=== PATIENT | female | born 1970 | race Caucasian/White ===

== ENCOUNTER 2017-12-26 18:28 | Inpatient (IN) ==
[2017-12-26] MEDS ORDERED: 0.9 % Sodium Chloride 1,000 ML IVC ONE ×2 (19:35→22:05)
[2017-12-26 19:47] LABS: Hematocrit 32.4 % (35.3-44.9); Hemoglobin 10.6 g/dL (11.5-15.4); Immature Granulocytes % 0.4 % (0-4); Lymphocytes % 11.1 %; Mean Corpuscular HGB Conc 32.7 g/dL (31.6-35.5); Mean Corpuscular Hemoglobin 29.4 pg (28.0-33.3); Mean Corpuscular Volume 89.8 fL (83.0-100.0); Mean Platelet Volume 9.9 fL (9.4-12.4); Platelet Count 267 K/mcL (140-400); Red Blood Count 3.61 M/mcL (3.82-4.97); Red Cell Distribution Width 13.9 % (11.5-14.5); Segmented Neutrophils % 82.4 %
[2017-12-26 19:48] LABS: Basophils % 0.2 %; Eosinophils % 0.1 %; Lymphocytes # 1.3 K/mcL (0.6-4.6); Monocytes # 0.7 K/mcL (0.0-1.3); Monocytes % 5.8 %; Neutrophils # 9.7 K/mcL (1.6-8.9)
[2017-12-26 20:03] LABS: BUN/Creatinine Ratio 7 (6-26); Blood Urea Nitrogen 4 mg/dL (6-20); Calcium 8.8 mg/dL (8.6-10.3); Carbon Dioxide 21 mEq/L (23-29); Chloride 108 mEq/L (98-107); Glucose 113 mg/dL (70-105); Osmolality,Calculated 284 (280-300); Potassium 3.3 mEq/L (3.5-5.1); Sodium 138 mEq/L (136-145); Troponin I < 0.03 ng/mL (< 0.04); eGFR For African Americans > 60 (> 60); eGFR For Non-African Americans > 60 (> 60)
[2017-12-26] MEDS ORDERED: Levofloxacin 750 MG/150 ML 750 MG/150 ML BAG IVPB ONE (20:12)
--- NOTE | 2017-12-26 20:15 | Emergency Department Note ---
Disposition Clinical Impression: Hypoxia Community acquired pneumonia Qualifiers: Laterality: unspecified laterality Qualified Code(s): J18.9 - Pneumonia, unspecified organism Disposition: Admitted As Inpatient Condition: Fair Time of Disposition: 22:34 General Adult HPI - General Chief complaint: ED Shortness of Breath/Dyspnea Stated complaint: MONIKA Time Seen by Provider: 12/26/17 19:14 Source: patient Mode of arrival: ambulatory Limitations: no limitations Nursing Notes Reviewed: Yes Vital Signs Reviewed: Yes - History of Present Illness HPI Narrative: 47-year-old female with no significant past medical history presenting to the emergency Department chief complaint of shortness of breath and pleuritic chest pain. Patient states 2 days ago she started having increased work of breathing and shortness of breath. Every time she takes a deep breath she has chest pain. The chest pain is substernal and does not radiate. She has not tried anything at home for this. She states the last time she felt this way she was diagnosed with pneumonia and innovated. Patient denies any cardiac history. Denies any asthma or COPD. Denies chest pain at this time. Denies fevers at home. Patient states she came to the emergency department because she is having trouble ambulating and is becoming dyspneic on exertion. Patient denies any history of PE or DVT. She does take the Depo shot. She denies any recent long trips or travels. Pain Scale: 0 - Related Data Home Medications Medication Instructions Recorded Confirmed Gabapentin [Neurontin] 1,200 mg PO TID 03/22/16 12/26/17 Ergocalciferol (VITAMIN D2) 50,000 unit PO MO 12/07/16 12/26/17 [Vitamin D2] Folic Acid 0.4 mg PO DAILY 12/07/16 12/26/17 Multivitamin [One Daily Essential] 1 tab PO DAILY 12/07/16 12/26/17 FLUoxetine HCl [Prozac] 80 mg PO DAILY 12/26/17 12/26/17 [place] Carbonate 300 mg PO TID 12/26/17 12/26/17 OLANZapine [Zyprexa] 20 mg PO HS 12/26/17 12/26/17 Omeprazole [PriLOSEC] 40 mg PO DAILY 12/26/17 12/26/17 hydrOXYzine HCl [Hydroxyzine HCl] 25 mg PO TID PRN 12/26/17 12/26/17 lamoTRIgine [Lamictal] 150 mg PO DAILY 12/26/17 12/26/17 Allergies Allergy/AdvReac Type Severity Reaction Status Date / Time naproxen [From Naprosyn] Allergy Rash Verified 12/26/17 18:58 tramadol Allergy Rash Verified 12/26/17 18:58 All systems ED: reviewed and negative except as stated. Cardiovascular: Reports: chest pain, dyspnea on exertion Respiratory: Reports: cough, dyspnea Past Medical History - Past Medical History Attestation: Yes The following information was validated with the patient. Medical history: Reports: arthritis, hepatitis Surgical history: Reports: appendectomy Psychiatric history: Reports: anxiety, bipolar, depression FIRE CONTROL ASSISTANT history: Reports: no FIRE CONTROL ASSISTANT history - Social History Smoking Status: Current every day smoker Smokeless Tobacco Status: No Alcohol use: Reports: none Drug use: Reports: none, other Physical Exam - General Limitations: no limitations General appearance: alert, in no apparent distress - Head Head exam: atraumatic, normocephalic, normal inspection - Eye Eye exam: Present: normal appearance. Absent: scleral icterus, conjunctival injection - ENT ENT exam: mucous membranes dry - Neck Neck exam: Present: normal inspection, full ROM. Absent: tenderness, meningismus - Chest Chest inspection: Present: normal inspection, symmetric chest wall rise. Absent : tenderness, rash - Respiratory Respiratory exam: Present: other (Rhonchi noted bilaterally.). Absent: respiratory distress - Cardiovascular Cardiovascular exam: Present: normal rhythm, tachycardia, normal heart sounds - Abdominal Exam Abdominal exam: Present: soft, Non-Tender. Absent: distention, guarding, rebound - Extremities Exam Extremities exam: Present: normal inspection, full ROM. Absent: pedal edema, calf tenderness - Neurological Exam Neurological exam: Present: alert, oriented X3 - Psychiatric Psychiatric exam: Present: normal affect, normal mood - Skin Skin exam: Present: warm, dry Course Course Narrative: 47-year-old female presenting to the emergency department for shortness of breath and pleuritic chest pain. Upon arrival she is hypoxic in the room a 80% . Nasal cannula oxygen applied. Patient also tachycardic around 120 in the room. Concern for pneumonia versus PE at this time. We will perform basic laboratory analysis including CBC, BMP along with d-dimer. We will also perform a chest x-ray. Patient is alert and oriented 3 in the room. After application of nasal cannula oxygen saturation in the mid 90s. We will also provide the patient with 1 L normal saline. Physical exam does show rhonchi and dry mucous membranes but otherwise within normal limits. No calf tenderness or unilateral leg swelling at this time. Disposition pending results. Patient agrees with this plan. - Reevaluation(s) Reevaluation #1: Patient's d-dimer elevated at 704. We will perform a CTA for further evaluation and rule out of PE. Portable chest x-ray shows possible multifocal pneumonia. We will provide the patient with Levaquin at this time. Patient is alert and oriented 3 in the room with stable vital signs at this time. She agrees to this plan. Disposition pending results. Reevaluation #2: CTA completed. No large embolus noted. Multifocal pneumonia noted. At this time we will admit the patient for community-acquired pneumonia along with hypoxia. I spoke with the on-call hospitalist Dr. Carter who agrees to accept the patient. He would like us to also added vancomycin to her antibiotic regimen. She is alert and oriented 3 in the room with stable vital signs at this time. She agrees with this plan. Vital Signs Temperature 98.8 F 12/26/17 18:54 Pulse Rate 132 12/26/17 18:54 Respiratory Rate 26 12/26/17 18:54 Blood Pressure 142/82 12/26/17 18:54 O2 Sat by Pulse Oximetry 94 12/26/17 18:54 Temperature 98.7 F 12/27/17 00:33 Pulse Rate 80 12/27/17 00:33 Respiratory Rate 18 12/27/17 00:33 Blood Pressure 87/51 12/27/17 00:33 O2 Sat by Pulse Oximetry 95 12/27/17 00:33 Oxygen Delivery Oxygen Delivery Nasal Cannula Medical Decision Making - Lab Data Result diagrams: 12/26/17 19:22 12/26/17 19:22 Lab Results 12/26/17 12/26/17 12/26/17 Range/Units 19:22 19:22 19:22 WBC 11.8 H (4.3-11.1) K/mcL RBC 3.61 L (3.82-4.97) M/mcL Hgb 10.6 L (11.5-15.4) g/dL Hct 32.4 L (35.3-44.9) % MCV 89.8 (83.0-100.0) fL MCH 29.4 (28.0-33.3) pg MCHC 32.7 (31.6-35.5) g/dL RDW 13.9 (11.5-14.5) % Plt Count 267 (140-400) K/mcL MPV 9.9 (9.4-12.4) fL Immature Gran % 0.4 (0-4) % Seg Neutrophils % 82.4 % Lymphocytes % 11.1 % Monocytes % 5.8 % Eosinophils % 0.1 % Basophils % 0.2 % Neutrophils # 9.7 H (1.6-8.9) K/mcL Lymphocytes # 1.3 (0.6-4.6) K/mcL Monocytes # 0.7 (0.0-1.3) K/mcL Eosinophils # 0.0 (0.0-0.6) K/mcL Basophils # 0.0 (0.0-0.2) K/mcL D-Dimer (0-500) ng/mLFEU Sodium 138 (136-145) mEq/L Potassium 3.3 L (3.5-5.1) mEq/L Chloride 108 H (98-107) mEq/L Carbon Dioxide 21 L (23-29) mEq/L BUN 4 L (6-20) mg/dL Creatinine 0.60 (0.60-1.20) mg/dL Est GFR ( Amer) > 60 (> 60) Est GFR (Non-Af Amer) > 60 (> 60) BUN/Creatinine Ratio 7 (6-26) Glucose 113 H (70-105) mg/dL Calculated Osmolality 284 (280-300) Lactic Acid 2.4 H (0.5-2.2) mmol/L Calcium 8.8 (8.6-10.3) mg/dL Troponin I < 0.03 (< 0.04) ng/mL B-Natriuretic Peptide (Less than 100) pg/mL 12/26/17 12/26/17 12/26/17 Range/Units 19:22 19:48 22:26 WBC (4.3-11.1) K/mcL RBC (3.82-4.97) M/mcL Hgb (11.5-15.4) g/dL Hct (35.3-44.9) % MCV (83.0-100.0) fL MCH (28.0-33.3) pg MCHC (31.6-35.5) g/dL RDW (11.5-14.5) % Plt Count (140-400) K/mcL MPV (9.4-12.4) fL Immature Gran % (0-4) % Seg Neutrophils % % Lymphocytes % % Monocytes % % Eosinophils % % Basophils % % Neutrophils # (1.6-8.9) K/mcL Lymphocytes # (0.6-4.6) K/mcL Monocytes # (0.0-1.3) K/mcL Eosinophils # (0.0-0.6) K/mcL Basophils # (0.0-0.2) K/mcL D-Dimer 704 H (0-500) ng/mLFEU Sodium (136-145) mEq/L Potassium (3.5-5.1) mEq/L Chloride (98-107) mEq/L Carbon Dioxide (23-29) mEq/L BUN (6-20) mg/dL Creatinine (0.60-1.20) mg/dL Est GFR ( Amer) (> 60) Est GFR (Non-Af Amer) (> 60) BUN/Creatinine Ratio (6-26) Glucose (70-105) mg/dL Calculated Osmolality (280-300) Lactic Acid 0.9 (0.5-2.2) mmol/L Calcium (8.6-10.3) mg/dL Troponin I (< 0.04) ng/mL B-Natriuretic Peptide 317 H (Less than 100) pg/mL - EKG Data EKG #1 EKG attestation: Yes I reviewed and interpreted this EKG. EKG results narrative: Sinus tachycardia. Left anterior fascicular block. Nonspecific T wave abnormality. 102 bpm. [place] interval 136, QRS 90, QTC 397. No signs of acute ST segment elevation or ischemia noted. Compared to previous EKG completed on new nonspecific T-wave abnormalities noted. Attestation Statement - Attestation Attestation: I, Anand Woods, examined this patient and my medical decision-making was reviewed with the METAL TRADES INSTRUCTOR/PA/Advanced Practice Nurse/Resident Physician. I agree with the documented findings, disposition and treatment plan as described except to the extent set forth below. 47-year-old female presents emergency Department with concerns of increasing shortness of breath over the past few days. Patient states her symptoms are similar to her previous pneumonia for which she needed admission in the past. Patient reports elevated temperature at home. Patient meets SIRS criteria on initial evaluation in the emergency department. Chest x-ray shows possible multifocal pneumonia. Patient has elevated d-dimer however CTA does not show evidence of mainstem PE. Patient has not been admitted to the hospital within the past few months. Patient will be started on antibiotics and admitted to the hospitalist for further Evaluation of likely multifocal pneumonia.
[2017-12-26] MEDS ORDERED: Ibuprofen 800 MG TABLET PO ONE (21:44)
[2017-12-26] MEDS ORDERED: Naloxone 0.4 MG/ML INJ IVP PRN (23:42)
[2017-12-26] MEDS ORDERED: hydrOXYzine pamoate 25 MG CAPSULE PO PRN (23:44)
[2017-12-26] MEDS ORDERED: Ringers Solution, Lactated 1,000 ML IVC SCH (23:45)
--- NOTE | 2017-12-26 23:46 | Internal Med History&Physical ---
Date of Encounter: 12/26/17 Time of Encounter: 23:30 Assessment and Plan (1) Pneumonia Current visit: Yes Status: Suspected Patient with multifocal pneumonia bilaterally. Will treat with broad-spectrum antibiotics for now. High risk for complications. Follow culture results. O2 supplementation as needed. Check urine Legionella and streptococcal antigen. Qualifiers: Pneumonia type: due to methicillin-resistant Staphylococcus aureus (MRSA) Laterality: bilateral Lung location: lower lobe of lung Qualified Code(s): J15.212 - Pneumonia due to Methicillin resistant Staphylococcus aureus (2) Depression Current visit: Yes Status: Chronic Continue home medications. Qualifiers: Depression Type: other depression Qualified Code(s): F32.89 - Other specified depressive episodes (3) Bipolar disorder Current visit: Yes Status: Chronic Continue lithium and Lamictal Qualifiers: Active/Remission status: in remission of unspecified degree Qualified Code( s): F31.70 - Bipolar disorder, currently in remission, most recent episode unspecified (4) Tobacco abuse Current visit: Yes Status: Chronic Consult. Offered nicotine patch. Patient was placed on 14 mg per hour patch (5) DVT prophylaxis Current visit: Yes Status: Acute With subcutaneous heparin Internal Medicine - H&P: HPI Chief complaint: Shortness of breath and cough Admitted From: Emergency Dept Plans for Post Hospital Care: Home History of present illness: Ms. Stafford is a 47 year old female patient with a history of bipolar disease, depression who presented to the ER with complaints of shortness of breath and cough. Symptoms have been going on for the past 2-3 days. No sputum production. No fever or chills reported at home. No nausea or vomiting. No chest pain. Reports that she had symptoms of flu one week back that improved. Also had a bout of pneumonia one year back. No recent hospitalizations. No recent antibiotic use. Past Med Surg Social Fam HX - Past Medical History Attestation: Yes The following information was validated with the patient. Source: patient Medical history: arthritis, hepatitis Psychiatric history: anxiety, bipolar, depression - Past Surgical History Surgical History: appendectomy - Social History Smoking Status: Current every day smoker Smokeless Tobacco Status: No Alcohol use: none Drug use: none, other - Family History Mother Living Status: Still Living Hx Family Cardiac Disorders: Yes (hypertension) Hx Family Endocrine Disorder: Yes (diabetes) Father Living Status: Still Living Hx Family Cardiac Disorders: Yes (hypertension) Hx Family Endocrine Disorder: Yes (diabetes) Internal Medicine - H&P: Meds Gabapentin [Neurontin] 1,200 mg PO TID 03/22/16 [History] Ergocalciferol (VITAMIN D2) [Vitamin D2] 50,000 unit PO MO 12/07/16 [History] Folic Acid 0.4 mg PO DAILY 12/07/16 [History] Multivitamin [One Daily Essential] 1 tab PO DAILY 12/07/16 [History] FLUoxetine HCl [Prozac] 80 mg PO DAILY 12/26/17 [History] [place] Carbonate 300 mg PO TID 12/26/17 [History] OLANZapine [Zyprexa] 20 mg PO HS 12/26/17 [History] Omeprazole [PriLOSEC] 40 mg PO DAILY 12/26/17 [History] hydrOXYzine HCl [Hydroxyzine HCl] 25 mg PO TID PRN 12/26/17 [History] lamoTRIgine [Lamictal] 150 mg PO DAILY 12/26/17 [History] 3 Allergy/AdvReac Type Severity Reaction Status Date / Time naproxen [From Naprosyn] Allergy Rash Verified 12/26/17 18:58 tramadol Allergy Rash Verified 12/26/17 18:58 All Systems PM: A 10-system review of systems was performed and is negative for pertinent findings except as documented above in the HPI. - Constitutional Constitutional: fatigue, malaise, no chills, no fever(s), no night sweats - EENT Eyes: no change in vision, no discharge, no pain, no photophobia Ears: no ear discharge, no ear pain, no tinnitus Nose, mouth and throat: no dysphagia, no nasal discharge, no neck pain, no sore throat - Cardiovascular Cardiovascular ROS IM: no chest pain, no diaphoresis, no dyspnea, no lightheadedness, no palpitations, no syncope - Respiratory Respiratory: cough, dyspnea - Gastrointestinal Gastrointestinal: no abdominal pain, no diarrhea, no hematemesis, no hematochezia, no melena, no nausea, no vomiting - Genitourinary Genitourinary: no change in urinary stream, no dysuria, no flank pain, no hematuria - Musculoskeletal Musculoskeletal ROS IM: no numbness, no tingling - Integumentary Integumentary IM: no rash, no unusual bruising - Neurological Neurological ROS: no confusion, no convulsions, no focal weakness, no numbness, no tingling, no tremor(s) - Hematologic/Lymphatic Hematologic/Lymphatic: no easy bruising - Constitutional Vitals: Temp Pulse Resp BP Pulse Ox 98.8 F 88 20 106/66 94 12/26/17 18:54 12/26/17 22:48 12/26/17 22:48 12/26/17 22:48 12/26/17 22:48 General appearance: Present: cooperative, A&O X 3, answers questions appropriately - Head Head exam: Present: atraumatic, normocephalic - Eye Eye exam: Present: EOMI, PERRL, conjuntiva pink, sclera anicteric - Neck Neck exam general surgery: Present: supple, trachea midline. Absent: lymphadenopathy - Respiratory Respiratory exam: Present: prolonged expiratory phase. Absent: accessory muscle use, rales, rhonchi, wheezes Additional comments: Coarse breath sounds bilaterally - Cardiovascular Cardiovascular exam: Present: RRR, +S1, +S2. Absent: diastolic murmur, gallop, rubs, systolic murmur - GI/Abdominal GI/Abdominal exam: Present: normal bowel sounds, soft, no peritoneal signs. Absent: distended, tenderness - Extremities Exam Extremities exam: Present: warm, radial pulses palpable and symmetrical. Absent : calf tenderness, cyanotic, pedal edema - Neurological Exam Neurological exam: Present: alert, CN II-XII intact, oriented X3, no focal deficits. Absent: facial droop, speech deficit - Skin Skin exam: Present: dry, intact Internal Med - H&P Results - Labs CBC & Chem 7: 12/26/17 19:22 12/26/17 19:22 - Impressions Impressions Chest X-Ray 12/26/17 19:22 IMPRESSION: Patchy bilateral opacity, with pulmonary vascular congestion. Pulmonary edema is the primary consideration, although multifocal pneumonia remains in the differential. D/ / Lalo Isbell MD / Lalo Isbell MD Interpreting Provider: Lalo Isbell MD Chest CTA 12/26/17 20:07 IMPRESSION: 1. Limited evaluation of the pulmonary arteries. No central pulmonary embolism is detected. 2. Extensive patchy alveolar ground-glass opacity and consolidation seen throughout both lungs, suggesting multifocal pneumonia. A component of pulmonary edema would be considered as well. D/ / Lalo Isbell MD / Lalo Isbell MD Interpreting Provider: Lalo Isbell MD
[2017-12-27] MEDS: Piperacillin/Tazobactam 3.375 GM in 0.9 % Sodium Chloride Mini Bag 100 ML IVPB SCH ×3 (01:28→15:03)
[2017-12-27] MEDS: OLANZapine 10 MG TAB.RAPDIS PO SCH ×2 (01:28→20:08)
[2017-12-27] MEDS: *HR* Heparin 5,000 UNIT/ML VIAL SQ SCH ×2 (05:33→17:50)
[2017-12-27 05:48] LABS: Basophils % 0.2 %; Eosinophils % 0.2 %; Hematocrit 30.9 % (35.3-44.9); Hemoglobin 10.1 g/dL (11.5-15.4); Immature Granulocytes % 0.4 % (0-4); Lymphocytes % 20.9 %; Mean Corpuscular HGB Conc 32.7 g/dL (31.6-35.5); Mean Corpuscular Hemoglobin 29.4 pg (28.0-33.3); Mean Corpuscular Volume 89.8 fL (83.0-100.0); Monocytes # 0.6 K/mcL (0.0-1.3); Monocytes % 6.4 %; Nucleated Red Blood Cells 0.2 /100 WBC (0); Platelet Count 242 K/mcL (140-400); Red Blood Count 3.44 M/mcL (3.82-4.97); Red Cell Distribution Width 14.2 % (11.5-14.5); Segmented Neutrophils % 71.9 %
[2017-12-27 06:02] LABS: BUN/Creatinine Ratio 6 (6-26); Blood Urea Nitrogen 3 mg/dL (6-20); Carbon Dioxide 21 mEq/L (23-29); Chloride 113 mEq/L (98-107); Glucose 97 mg/dL (70-105); Osmolality,Calculated 284 (280-300); Potassium 4.2 mEq/L (3.5-5.1); Sodium 139 mEq/L (136-145); eGFR For African Americans > 60 (> 60); eGFR For Non-African Americans > 60 (> 60)
[2017-12-27] MEDS ORDERED: 0.9 % Sodium Chloride 1,000 ML IVC ONE ×2 (06:50→12:54)
[2017-12-27] MEDS ORDERED: 0.9 % Sodium Chloride 1,000 ML ONE ×2 (06:53→12:57)
[2017-12-27] MEDS: Nicotine 14 MG PATCH.TD24 TD SCH (07:52)
[2017-12-27] MEDS: Lithium Carbonate 300 MG CAPSULE PO SCH ×3 (07:53→20:08)
[2017-12-27] MEDS: lamoTRIgine 100 MG TABLET PO SCH (07:53)
[2017-12-27] MEDS: FLUoxetine 20 MG CAPSULE PO SCH (07:53)
[2017-12-27] MEDS: Gabapentin 400 MG CAPSULE PO SCH ×3 (07:53→20:08)
[2017-12-27] MEDS: Multivit/Ca/Min/Fe/FA 1 TAB TABLET PO SCH (07:53)
[2017-12-27] MEDS: Folic Acid 1 MG TABLET PO SCH (07:53)
--- NOTE | 2017-12-27 10:02 | Internal Med Progress Note ---
<Dangelo Canales - Last Filed: 12/27/17 12:59> Date of Encounter: 12/27/17 Time of Encounter: 09:59 - Assessment and plan (1) Pneumonia Current Visit: No Status: Suspected Assessment and plan: CT scan showed possible multifocal pneumonia bilaterally Continue with vancomycin, Zosyn and Levaquin Continue oxygen supplementation as needed Blood cultures have been drawn Legionella and strep pneumonia antigen have been ordered Qualifiers: Pneumonia type: due to unspecified organism Laterality: bilateral Lung location: lower lobe of lung Qualified Code(s): J18.9 - Pneumonia, unspecified organism (2) Bipolar disorder Current Visit: No Status: Chronic Assessment and plan: Continue home medications Qualifiers: Active/Remission status: remission status unspecified Qualified Code(s): F31.9 - Bipolar disorder, unspecified (3) Depression Current Visit: No Status: Chronic Assessment and plan: Continue home medications Qualifiers: Depression Type: unspecified Qualified Code(s): F32.9 - Major depressive disorder, single episode, unspecified (4) Tobacco abuse Current Visit: No Status: Chronic Assessment and plan: Nicotine patch as an order for this patient Recommend cessation (5) DVT prophylaxis Current Visit: No Status: Acute Assessment and plan: heparin 5000 units SQ q12hrs - Subjective Interval history: Patient states that she feels like she is doing better. Patient denies any fever. Patient states that she does have some mild chest pain when she breathes or when she coughs. Patient denies any production to her cough. Patient denies any home oxygen use. - Constitutional Vitals: Temp Pulse Resp BP Pulse Ox 98.0 F 68 18 93/52 97 12/27/17 06:37 12/27/17 06:37 12/27/17 06:37 12/27/17 09:34 12/27/17 06:37 General appearance: Present: cooperative, A&O X 3, answers questions appropriately - Head Head exam: Present: atraumatic, normocephalic - Neck Neck exam general surgery: Present: full ROM, normal inspection, trachea midline - Respiratory Respiratory exam: Present: CTAB. Absent: accessory muscle use, rales, rhonchi, wheezes - Cardiovascular Cardiovascular exam: Present: RRR, +S1, +S2. Absent: diastolic murmur, gallop, rubs, systolic murmur - GI/Abdominal GI/Abdominal exam: Present: normal bowel sounds, soft, no peritoneal signs. Absent: distended, tenderness - Extremities Exam Extremities exam: Present: warm. Absent: pedal edema, tenderness - Neurological Exam Neurological exam: Present: alert, oriented X3, no focal deficits. Absent: facial droop, speech deficit - Psychiatric Psychiatric exam: Present: normal affect, normal mood - Skin Skin exam: Present: dry, intact, warm Internal Medicine: Result - Labs CBC & Chem 7: 12/27/17 05:00 12/27/17 05:00 Labs: Short CBC 12/27/17 Range/Units 05:00 WBC 9.8 (4.3-11.1) K/mcL Hgb 10.1 L (11.5-15.4) g/dL Hct 30.9 L (35.3-44.9) % Plt Count 242 (140-400) K/mcL Neutrophils # 7.0 (1.6-8.9) K/mcL BMP 12/27/17 05:00 Sodium 139 Potassium 4.2 D Chloride 113 H Carbon Dioxide 21 L BUN 3 L Creatinine 0.51 L Glucose 97 Calcium 8.0 L - ABG Interpretation ABG results: PT/INR, D-dimer D-Dimer 704 ng/mLFEU (0-500) H 12/26/17 19:48 Consult Discharge Plan - Plan Referrals: Dolly Adams, [employer]DER [Primary Care Provider] - <Tray Pandya - Last Filed: 12/27/17 18:49> Date of Encounter: 12/27/17 - Assessment and plan (1) Acute hypoxemic respiratory failure Current Visit: No Status: Acute (2) Pneumonia Current Visit: Yes Status: Suspected Qualifiers: Pneumonia type: due to other aerobic Gram-negative bacteria Laterality: bilateral Lung location: lower lobe of lung Qualified Code(s): J15.6 - Pneumonia due to other Gram-negative bacteria (3) Hypokalemia Current Visit: No Status: Acute (4) Hepatitis C Current Visit: No Status: Chronic Qualifiers: Viral hepatitis chronicity: chronic Hepatic coma status: without hepatic coma Qualified Code(s): B18.2 - Chronic viral hepatitis C (5) Bipolar disorder Current Visit: Yes Status: Chronic Qualifiers: Active/Remission status: in remission of unspecified degree Qualified Code( s): F31.70 - Bipolar disorder, currently in remission, most recent episode unspecified (6) Tobacco abuse Current Visit: Yes Status: Chronic - Constitutional Vitals: Temp Pulse Resp BP Pulse Ox 98.7 F 79 18 92/59 93 12/27/17 15:18 12/27/17 15:18 12/27/17 15:18 12/27/17 15:18 12/27/17 15:18 Internal Medicine: Result - Labs CBC & Chem 7: 12/27/17 05:00 12/27/17 05:00 Labs: Short CBC 12/27/17 Range/Units 05:00 WBC 9.8 (4.3-11.1) K/mcL Hgb 10.1 L (11.5-15.4) g/dL Hct 30.9 L (35.3-44.9) % Plt Count 242 (140-400) K/mcL Neutrophils # 7.0 (1.6-8.9) K/mcL BMP 12/27/17 05:00 Sodium 139 Potassium 4.2 D Chloride 113 H Carbon Dioxide 21 L BUN 3 L Creatinine 0.51 L Glucose 97 Calcium 8.0 L - ABG Interpretation ABG results: PT/INR, D-dimer D-Dimer 704 ng/mLFEU (0-500) H 12/26/17 19:48 - Attending Attestation I examined this patient and my medical decision-making was reviewed with the Resident Physician on 12/27/17. I agree with the documented findings, disposition and treatment plan as described except to the extent set forth below. Ms Stafford is currently admitted for bilateral multifocal pneumonia. She remains moderate to high risk due to potential for worsening clinical status. Ms Stafford is having some pleuritic pain. Breathing is a little better. No fever at this time. Still with cough. Exam Alert mod distress Mucus membranes dry Heart reg Lungs with rhonchi bilaterally Abd soft I/P 1. Multifocal PNA 2. Hypoxia Further diagnoses and plan as above.
[2017-12-27] MEDS: Acetaminophen 325 MG TABLET PO PRN ×2 (11:57→17:50)
[2017-12-27] MEDS ORDERED: Ketorolac 15 MG/ML VIAL IVP ONE (15:19)
[2017-12-27] MEDS: Ringers Solution, Lactated 1,000 ML IVC SCH ×2 (15:25→20:23)
[2017-12-27] MEDS: Levofloxacin 750 MG/150 ML 750 MG/150 ML BAG IVPB SCH (17:50)
[2017-12-27] MEDS: Ketorolac 15 MG/ML VIAL IVP PRN (19:17)
--- NOTE | 2017-12-27 19:47 | Electrocardiograph Report ---
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
[2017-12-28] MEDS: Piperacillin/Tazobactam 3.375 GM in 0.9 % Sodium Chloride Mini Bag 100 ML IVPB SCH ×2 (00:17→08:13)
[2017-12-28] MEDS: Ketorolac 15 MG/ML VIAL IVP PRN ×3 (02:28→17:08)
[2017-12-28 03:44] LABS: Basophils % 0.2 %; Eosinophils % 0.1 %; Hematocrit 30.6 % (35.3-44.9); Hemoglobin 9.8 g/dL (11.5-15.4); Immature Granulocytes % 0.4 % (0-4); Lymphocytes # 1.7 K/mcL (0.6-4.6); Lymphocytes % 16.7 %; Mean Corpuscular Hemoglobin 29.3 pg (28.0-33.3); Mean Corpuscular Volume 91.3 fL (83.0-100.0); Mean Platelet Volume 10.3 fL (9.4-12.4); Monocytes # 0.6 K/mcL (0.0-1.3); Monocytes % 6.1 %; Neutrophils # 7.7 K/mcL (1.6-8.9); Platelet Count 268 K/mcL (140-400); Red Blood Count 3.35 M/mcL (3.82-4.97); Red Cell Distribution Width 14.5 % (11.5-14.5); Segmented Neutrophils % 76.5 %
[2017-12-28 04:03] LABS: BUN/Creatinine Ratio 8 (6-26); Blood Urea Nitrogen 5 mg/dL (6-20); Carbon Dioxide 23 mEq/L (23-29); Chloride 113 mEq/L (98-107); Glucose 81 mg/dL (70-105); Osmolality,Calculated 286 (280-300); Potassium 4.5 mEq/L (3.5-5.1); Sodium 140 mEq/L (136-145); eGFR For African Americans > 60 (> 60); eGFR For Non-African Americans > 60 (> 60)
[2017-12-28] MEDS: Ringers Solution, Lactated 1,000 ML IVC SCH (04:42)
[2017-12-28] MEDS: *HR* Heparin 5,000 UNIT/ML VIAL SQ SCH ×2 (04:42→17:09)
[2017-12-28] MEDS ORDERED: Aminoglycoside Consult 1 EACH MC ONE (08:04)
[2017-12-28] MEDS: Gabapentin 400 MG CAPSULE PO SCH ×3 (08:14→20:56)
[2017-12-28] MEDS: Lithium Carbonate 300 MG CAPSULE PO SCH ×3 (08:14→20:56)
[2017-12-28] MEDS: Folic Acid 1 MG TABLET PO SCH (08:14)
[2017-12-28] MEDS: FLUoxetine 20 MG CAPSULE PO SCH (08:14)
[2017-12-28] MEDS: lamoTRIgine 100 MG TABLET PO SCH (08:15)
[2017-12-28] MEDS: Acetaminophen 325 MG TABLET PO PRN ×2 (08:15→15:39)
[2017-12-28] MEDS: Multivit/Ca/Min/Fe/FA 1 TAB TABLET PO SCH (08:15)
[2017-12-28] MEDS: Nicotine 14 MG PATCH.TD24 TD SCH (08:15)
--- NOTE | 2017-12-28 12:16 | Internal Med Progress Note ---
<Dangelo Canales - Last Filed: 12/28/17 13:55> Date of Encounter: 12/28/17 Time of Encounter: 12:14 - Assessment and plan (1) Pneumonia Current Visit: Yes Status: Suspected Assessment and plan: CT scan showed possible multifocal pneumonia bilaterally Continue with vancomycin, Zosyn and Levaquin Continue oxygen supplementation as needed Blood cultures have been drawn Legionella and strep pneumonia antigen have been ordered. Results are pending Qualifiers: Pneumonia type: due to unspecified organism Laterality: bilateral Lung location: lower lobe of lung Qualified Code(s): J18.9 - Pneumonia, unspecified organism (2) Headache Current Visit: Yes Status: Acute Assessment and plan: Patient reports that she has been having a head Toradol prn for pain Qualifiers: Headache type: unspecified Headache chronicity pattern: unspecified pattern Intractability: not intractable Qualified Code(s): R51 - Headache (3) Bipolar disorder Current Visit: No Status: Chronic Assessment and plan: Continue home medications Qualifiers: Active/Remission status: remission status unspecified Qualified Code(s): F31.9 - Bipolar disorder, unspecified (4) Depression Current Visit: No Status: Chronic Assessment and plan: Continue home medications Qualifiers: Depression Type: unspecified Qualified Code(s): F32.9 - Major depressive disorder, single episode, unspecified (5) Tobacco abuse Current Visit: No Status: Chronic Assessment and plan: Nicotine patch as an order for this patient Recommend cessation (6) DVT prophylaxis Current Visit: No Status: Acute Assessment and plan: heparin 5000 units SQ q12hrs - Subjective Interval history: Patient states that she feels like she is doing better. Patient denies any fever. She does report some mild chest pain when she coughs. Patient denies any production to her cough. Patient denies any home oxygen use. - Constitutional Vitals: Temp Pulse Resp BP Pulse Ox 98.7 F 87 16 126/78 95 12/28/17 06:42 12/28/17 06:42 12/28/17 06:42 12/28/17 06:42 12/28/17 06:42 General appearance: Present: cooperative, A&O X 3, answers questions appropriately - Head Head exam: Present: atraumatic, normocephalic - Neck Neck exam general surgery: Present: full ROM, normal inspection, trachea midline - Respiratory Respiratory exam: Present: CTAB. Absent: accessory muscle use, rales, rhonchi, wheezes - Cardiovascular Cardiovascular exam: Present: RRR, +S1, +S2. Absent: diastolic murmur, gallop, rubs, systolic murmur - GI/Abdominal GI/Abdominal exam: Present: normal bowel sounds, soft, no peritoneal signs. Absent: distended, tenderness - Extremities Exam Extremities exam: Present: warm. Absent: pedal edema, tenderness - Neurological Exam Neurological exam: Present: alert, oriented X3, no focal deficits. Absent: facial droop, speech deficit - Psychiatric Psychiatric exam: Present: normal affect, normal mood - Skin Skin exam: Present: dry, intact, warm Internal Medicine: Result - Labs CBC & Chem 7: 12/28/17 01:19 12/28/17 01:19 Labs: Short CBC 12/28/17 Range/Units 01:19 WBC 10.1 (4.3-11.1) K/mcL Hgb 9.8 L (11.5-15.4) g/dL Hct 30.6 L (35.3-44.9) % Plt Count 268 (140-400) K/mcL Neutrophils # 7.7 (1.6-8.9) K/mcL BMP 12/28/17 01:19 Sodium 140 Potassium 4.5 Chloride 113 H Carbon Dioxide 23 BUN 5 L Creatinine 0.59 L Glucose 81 Calcium 8.0 L - ABG Interpretation ABG results: PT/INR, D-dimer D-Dimer 704 ng/mLFEU (0-500) H 12/26/17 19:48 Consult Discharge Plan - Plan Referrals: Dolly Adams, SHRUTHI [Primary Care Provider] - <Tray Pandya - Last Filed: 12/28/17 17:39> Date of Encounter: 12/28/17 - Assessment and plan (1) Acute hypoxemic respiratory failure Current Visit: No Status: Ruled-out Assessment and plan: Pt was 94% on RA on admit. Has remained on 2L NC and maintaining good oxygen saturations. (2) Pneumonia Current Visit: Yes Status: Suspected Qualifiers: Pneumonia type: due to other aerobic Gram-negative bacteria Laterality: bilateral Lung location: lower lobe of lung Qualified Code(s): J15.6 - Pneumonia due to other Gram-negative bacteria (3) Hypokalemia Current Visit: No Status: Resolved (4) Hepatitis C Current Visit: No Status: Chronic Qualifiers: Viral hepatitis chronicity: chronic Hepatic coma status: without hepatic coma Qualified Code(s): B18.2 - Chronic viral hepatitis C (5) Bipolar disorder Current Visit: Yes Status: Chronic Qualifiers: Active/Remission status: in remission of unspecified degree Qualified Code( s): F31.70 - Bipolar disorder, currently in remission, most recent episode unspecified (6) Tobacco abuse Current Visit: Yes Status: Chronic - Constitutional Vitals: Temp Pulse Resp BP Pulse Ox 98.6 F 97 16 116/70 96 12/28/17 15:28 12/28/17 15:28 12/28/17 15:28 12/28/17 15:28 12/28/17 15:28 Internal Medicine: Result - Labs CBC & Chem 7: 12/28/17 01:19 12/28/17 01:19 Labs: Short CBC 12/28/17 Range/Units 01:19 WBC 10.1 (4.3-11.1) K/mcL Hgb 9.8 L (11.5-15.4) g/dL Hct 30.6 L (35.3-44.9) % Plt Count 268 (140-400) K/mcL Neutrophils # 7.7 (1.6-8.9) K/mcL BMP 12/28/17 01:19 Sodium 140 Potassium 4.5 Chloride 113 H Carbon Dioxide 23 BUN 5 L Creatinine 0.59 L Glucose 81 Calcium 8.0 L - ABG Interpretation ABG results: PT/INR, D-dimer D-Dimer 704 ng/mLFEU (0-500) H 12/26/17 19:48 - Attending Attestation I examined this patient and my medical decision-making was reviewed with the Resident Physician on 12/28/17. I agree with the documented findings, disposition and treatment plan as described except to the extent set forth below. Ms Stafford is currently admitted for acute bilateral multifocal pneumonia. She remains moderate to high risk due to potential for worsening clinical status. Ms Stafford feels she is slowly improving. No fever or chills. Headache and pleuritic pain responds to Toradol. Less cough and dyspnea. Exam Alert Comfortable resting in bed Mucus membranes dry Heart reg Lungs clearer today Abd soft I/P 1. PNA 2. Bipolar Further diagnoses and plan as above.
[2017-12-28] MEDS: Levofloxacin 750 MG/150 ML 750 MG/150 ML BAG IVPB SCH (17:09)
[2017-12-28] MEDS: OLANZapine 10 MG TAB.RAPDIS PO SCH (20:56)
[2017-12-29] MEDS: Ketorolac 15 MG/ML VIAL IVP PRN ×2 (00:03→06:08)
[2017-12-29 01:18] LABS: Basophils % 0.1 %; Hematocrit 30.1 % (35.3-44.9); Hemoglobin 9.6 g/dL (11.5-15.4); Immature Granulocytes % 0.2 % (0-4); Lymphocytes # 1.6 K/mcL (0.6-4.6); Lymphocytes % 19.6 %; Mean Corpuscular HGB Conc 31.9 g/dL (31.6-35.5); Mean Corpuscular Hemoglobin 28.5 pg (28.0-33.3); Mean Corpuscular Volume 89.3 fL (83.0-100.0); Mean Platelet Volume 9.4 fL (9.4-12.4); Monocytes # 0.6 K/mcL (0.0-1.3); Monocytes % 6.6 %; Neutrophils # 6.1 K/mcL (1.6-8.9); Nucleated Red Blood Cells 0.2 /100 WBC (0); Platelet Count 292 K/mcL (140-400); Red Blood Count 3.37 M/mcL (3.82-4.97); Red Cell Distribution Width 14.4 % (11.5-14.5); Segmented Neutrophils % 73.5 %
[2017-12-29 01:37] LABS: BUN/Creatinine Ratio 9 (6-26); Blood Urea Nitrogen 6 mg/dL (6-20); Calcium 8.2 mg/dL (8.6-10.3); Carbon Dioxide 23 mEq/L (23-29); Chloride 111 mEq/L (98-107); Glucose 114 mg/dL (70-105); Osmolality,Calculated 288 (280-300); Potassium 4.1 mEq/L (3.5-5.1); Sodium 140 mEq/L (136-145); eGFR For African Americans > 60 (> 60); eGFR For Non-African Americans > 60 (> 60)
[2017-12-29] MEDS: *HR* Heparin 5,000 UNIT/ML VIAL SQ SCH (06:08)
[2017-12-29] MEDS: Lithium Carbonate 300 MG CAPSULE PO SCH (08:45)
[2017-12-29] MEDS: FLUoxetine 20 MG CAPSULE PO SCH (08:45)
[2017-12-29] MEDS: Gabapentin 400 MG CAPSULE PO SCH (08:45)
[2017-12-29] MEDS: Multivit/Ca/Min/Fe/FA 1 TAB TABLET PO SCH (08:46)
[2017-12-29] MEDS: Folic Acid 1 MG TABLET PO SCH (08:46)
[2017-12-29] MEDS: lamoTRIgine 100 MG TABLET PO SCH (08:46)
[2017-12-29] MEDS: Nicotine 14 MG PATCH.TD24 TD SCH (08:46)
--- NOTE | 2017-12-29 09:59 | Discharge Summary ---
<Dangelo Canales - Last Filed: 12/29/17 10:45> - NOTES TO OUTPATIENT PROVIDER Notes to Outpatient Provider: Patient was admitted to the hospital for a multifocal pneumonia. Patient was placed on broad-spectrum antibiotics and was deescalated once the culture preliminarily showed no growth. The patient was discharged home with the remainder course of her antibiotics. Date of Encounter: 12/29/17 Time of Encounter: 09:56 - Discharge Diagnosis (1) Pneumonia Priority: Primary Status: Suspected Qualifiers: Pneumonia type: due to unspecified organism Laterality: bilateral Lung location: lower lobe of lung Qualified Code(s): J18.1 - Lobar pneumonia, unspecified organism (2) Headache Priority: Primary Status: Acute Qualifiers: Headache type: unspecified Headache chronicity pattern: unspecified pattern Intractability: not intractable Qualified Code(s): R51 - Headache (3) Bipolar disorder Priority: Secondary Status: Chronic Qualifiers: Active/Remission status: remission status unspecified Qualified Code(s): F31.9 - Bipolar disorder, unspecified (4) Depression Priority: Secondary Status: Chronic Qualifiers: Depression Type: unspecified Qualified Code(s): F32.9 - Major depressive disorder, single episode, unspecified (5) Tobacco abuse Priority: Secondary Status: Chronic (6) DVT prophylaxis Priority: Primary Status: Acute Hospital course: Ms. Stafford is a 47 year old female was admitted to the hospital for multifocal pneumonia. Patient was placed on broad-spectrum antibiotic including vancomycin , Zosyn and Levaquin. Once the blood cultures came back with a preliminary no growth the patient's antibiotics were D escalated to just Levaquin. The patient has significantly improved and saying that she is feeling basically back to her baseline. The patient desires to go home and we feel that the patient is medically stable and appropriate for discharge. The patient was discharged home with antibiotics to complete a 7 day course. Discharge discussed with: patient - Time Spent with Patient Total time spent providing and/or coordinating discharge services: Greater than 30 minutes Specific discharge activities: 35 - Discharge Medications Prescriptions: Levofloxacin [Levaquin] 750 mg PO DAILY #4 tablet Home Medications: Gabapentin [Neurontin] 1,200 mg PO TID 03/22/16 [History] Ergocalciferol (VITAMIN D2) [Vitamin D2] 50,000 unit PO MO 12/07/16 [History] Folic Acid 0.4 mg PO DAILY 12/07/16 [History] Multivitamin [One Daily Essential] 1 tab PO DAILY 12/07/16 [History] FLUoxetine HCl [Prozac] 80 mg PO DAILY 12/26/17 [History] [place] Carbonate 300 mg PO TID 12/26/17 [History] OLANZapine [Zyprexa] 20 mg PO HS 12/26/17 [History] Omeprazole [PriLOSEC] 40 mg PO DAILY 12/26/17 [History] hydrOXYzine HCl [Hydroxyzine HCl] 25 mg PO TID PRN 12/26/17 [History] lamoTRIgine [Lamictal] 150 mg PO DAILY 12/26/17 [History] Levofloxacin [Levaquin] 750 mg PO DAILY #4 tablet 12/29/17 [Rx] Allergies/Adverse Reactions: 3 Allergy/AdvReac Type Severity Reaction Status Date / Time naproxen [From Naprosyn] Allergy Rash Verified 12/26/17 18:58 tramadol Allergy Rash Verified 12/26/17 18:58 Date of admission: 12/27/17 04:30 Primary care physician: Dolly Adasm CNP Discharging clinician: Dangelo Canales Anticipated date of discharge: 12/29/17 - Constitutional Vitals: Temp Pulse Resp BP Pulse Ox 98.8 F 87 16 111/78 98 12/29/17 06:35 12/29/17 06:35 12/29/17 06:35 12/29/17 06:35 12/29/17 06:35 General appearance: Present: cooperative, A&O X 3, answers questions appropriately - Head Head exam: Present: atraumatic, normocephalic - Neck Neck exam general surgery: Present: full ROM, normal inspection, trachea midline - Respiratory Respiratory exam: Present: CTAB. Absent: accessory muscle use, rales, rhonchi, wheezes - Cardiovascular Cardiovascular exam: Present: RRR, +S1, +S2. Absent: diastolic murmur, gallop, rubs, systolic murmur - GI/Abdominal GI/Abdominal exam: Present: normal bowel sounds, soft, no peritoneal signs. Absent: distended, tenderness - Extremities Exam Extremities exam: Present: warm. Absent: pedal edema, tenderness - Neurological Exam Neurological exam: Present: alert, oriented X3, no focal deficits. Absent: facial droop, speech deficit - Psychiatric Psychiatric exam: Present: normal affect, normal mood - Skin Skin exam: Present: dry, intact, warm - Patient Status Disposition: Home, Self-Care Condition: Fair Overall status at discharge: patient is progressing back to baseline - Discharge Instructions Instructions: Community-acquired Pneumonia (DC) Follow Up With: Dolly Adams CNP [Primary Care Provider] - 01/04/18 10:45 am Additional Instructions: Please follow up with your primary care provider at next available appointment Please take all medications as prescribed Please contact your primary care physician or go to the emergency department if you have any worsening of your symptoms or any concerns about your health. - Diet and Activity Activity: increase activity as tolerated Diet: advance to your usual diet <Tray Pandya - Last Filed: 12/29/17 17:58> Date of Encounter: 12/29/17 - Discharge Diagnosis (1) Pneumonia Priority: Primary Status: Suspected Qualifiers: Pneumonia type: due to other aerobic Gram-negative bacteria Laterality: bilateral Lung location: lower lobe of lung Qualified Code(s): J15.6 - Pneumonia due to other Gram-negative bacteria (2) Hypokalemia Priority: Secondary Status: Resolved (3) Hepatitis C Priority: Secondary Status: Chronic Qualifiers: Viral hepatitis chronicity: chronic Hepatic coma status: without hepatic coma Qualified Code(s): B18.2 - Chronic viral hepatitis C (4) Bipolar disorder Priority: Secondary Status: Chronic Qualifiers: Active/Remission status: in remission of unspecified degree Qualified Code( s): F31.70 - Bipolar disorder, currently in remission, most recent episode unspecified (5) Tobacco abuse Priority: Secondary Status: Chronic Hospital course: Ms. Stafford is a 47 year old female - Time Spent with Patient Total time spent providing and/or coordinating discharge services: 38min Date of admission: 12/27/17 04:30 Primary care physician: Dolly Adams CNP - Constitutional Vitals: Temp Pulse Resp BP Pulse Ox 98.5 F 93 16 117/68 95 12/29/17 09:55 12/29/17 09:55 12/29/17 09:55 12/29/17 09:55 12/29/17 09:55 - Attending Attestation I examined this patient and my medical decision-making was reviewed with the Resident Physician on 3/9/18. I agree with the documented findings, disposition and treatment plan as described except to the extent set forth below. Ms Stafford has been admitted for acute multifocal pneumonia. She is off oxygen and feeling nearly at baseline. No fever at this time. She feels ready to go home on PO abx. Exam Alert. Comfortable Mucus membranes dry Heart reg No wheeze or rhonchi at this time Plan D/C home today Complete abx course Follow up with PCP.
[2017-12-29 11:04] VITALS: BP 117/68
[2017-12-29] MEDS ORDERED: FLUARIX QUAD 2017-18 36MOS UP/PF 0.5 ML SYRINGE IM ONE (11:35)
[2017-12-29] MEDS ORDERED: Ketorolac 30 MG/ML VIAL IM ONE (12:01)
== END 2017-12-29 12:28 | disposition home or self-care (01) | DRG 137 ==
LOC: 3NENU 18:28 → EMEROO 18:28 → 3NENU 23:47 → SUATTDRO 12-27 04:30
PROVIDERS: ADMIT Internal Medicine; ATTEND Internal Medicine

== ENCOUNTER 2019-11-14 06:16 | Observation (INO) ==
[2019-11-14] MEDS ORDERED: Aspirin 81 MG TAB.CHEW PO ONE (06:22)
[2019-11-14 06:38] LABS: Basophils % 0.3 %; Eosinophils # 0.2 K/mcL (0.0-0.6); Eosinophils % 2.6 %; Hematocrit 41.2 % (35.3-44.9); Hemoglobin 13.7 g/dL (11.5-15.4); Immature Granulocytes % 0.3 % (0-4); Lymphocytes % 22.8 %; Mean Corpuscular HGB Conc 33.3 g/dL (31.6-35.5); Mean Corpuscular Hemoglobin 30.7 pg (28.0-33.3); Mean Corpuscular Volume 92.4 fL (83.0-100.0); Mean Platelet Volume 9.5 fL (9.4-12.4); Monocytes # 0.5 K/mcL (0.0-1.3); Monocytes % 5.3 %; Neutrophils # 6.1 K/mcL (1.6-8.9); Platelet Count 302 K/mcL (140-400); Red Blood Count 4.46 M/mcL (3.82-4.97); Segmented Neutrophils % 68.7 %; White Blood Count 8.8 K/mcL (4.3-11.1)
[2019-11-14 06:42] LABS: Prothrombin Time 10.8 Seconds (9.4-12.1)
[2019-11-14 06:44] LABS: Activated Partial Thrombo Time 32.6 Seconds (26.0-36.0)
[2019-11-14] MEDS ORDERED: Isovue-370 500 ML BOTTLE IVP ONE (06:53)
[2019-11-14 07:00] LABS: BUN/Creatinine Ratio 26 (6-26); Blood Urea Nitrogen 22 mg/dL (6-20); Calcium 9.3 mg/dL (8.6-10.3); Carbon Dioxide 23 mEq/L (23-29); Chloride 107 mEq/L (98-107); Glucose 74 mg/dL (70-105); Osmolality,Calculated 292 (280-300); Potassium 3.5 mEq/L (3.5-5.1); Sodium 140 mEq/L (136-145); Troponin I < 0.03 ng/mL (< 0.04); eGFR For African Americans > 60 (> 60); eGFR For Non-African Americans > 60 (> 60)
[2019-11-14] MEDS: Nitroglycerin 0.4 MG TAB.SUBL SL SCH ×3 (07:00→16:35)
[2019-11-14] MEDS ORDERED: *HR* LORazepam 2 MG/ML VIAL ONE (08:44)
[2019-11-14] MEDS ORDERED: *HR* Heparin 5,000 UNIT/ML VIAL IVP PRN ×2 (08:47)
[2019-11-14] MEDS ORDERED: *HR* Heparin 5,000 UNIT/ML VIAL IVP ONE (08:47)
[2019-11-14] MEDS ORDERED: 0.9 % Sodium Chloride 1,000 ML IVC ONE (08:49)
[2019-11-14] MEDS ORDERED: cefTRIAXone 1,000 MG in 0.9 % Sodium Chloride Mini Bag 100 ML IVPB ONE (08:49)
[2019-11-14] MEDS ORDERED: Azithromycin 500 MG in 0.9 % Sodium Chloride 250 ML IVPB ONE (08:49)
[2019-11-14] MEDS ORDERED: Heparin 25,000 UNIT/250 ML D5W 25,000 UNIT/250 ML IV.SOLN IVC SCH (09:00)
[2019-11-14] MEDS ORDERED: *HR* Enoxaparin 80 MG/0.8 ML SYRINGE SQ SCH (09:17)
[2019-11-14] MEDS ORDERED: Naloxone 0.4 MG/ML INJ IVP PRN (09:18)
[2019-11-14] MEDS ORDERED: Acetaminophen 325 MG TABLET PO PRN (09:18)
[2019-11-14] MEDS ORDERED: Ondansetron 4 MG/2 ML VIAL IVP PRN (09:18)
[2019-11-14] MEDS ORDERED: *HR* LORazepam 2 MG/ML VIAL IVP ONE (10:02)
[2019-11-14] MEDS: Nicotine 21 MG PATCH.TD24 TD SCH (11:13)
[2019-11-14] MEDS: Pregabalin 50 MG CAPSULE PO SCH ×2 (11:14→20:13)
[2019-11-14] MEDS: OXcarbazepine 150 MG TABLET PO SCH ×2 (11:14→20:14)
[2019-11-14 13:13] LABS: Adenovirus Not Detected (Not Detect); Bordetella Pertussis Not Detected (Not Detect); Chlamydophila pneumoniae Not Detected (Not Detect); Coronavirus 229E Not Detected (Not Detect); Coronavirus HKU1 Not Detected (Not Detect); Coronavirus NL63 Not Detected (Not Detect); Coronavirus OC43 Not Detected (Not Detect); Human Metapneumovirus Not Detected (Not Detect); Human Rhinovirus/Enterovirus Not Detected (Not Detect); Influenza A Subtype 2009 H1 Not Detected (Not Detect); Influenza B Not Detected (Not Detect); Mycoplasma pneumoniae Not Detected (Not Detect); Parainfluenza Virus 1 Not Detected (Not Detect); Parainfluenza Virus 2 Not Detected (Not Detect); Parainfluenza Virus 3 Not Detected (Not Detect); Parainfluenza Virus 4 Not Detected (Not Detect); Respiratory Syncytial Virus Not Detected (Not Detect)
[2019-11-14] MEDS: *HR* OxyCODONE/APAP 5/325 TABLET PO PRN ×2 (13:33→20:14)
[2019-11-14 13:55] LABS: Bilirubin,Urine Negative (Negative); Blood,Urine Negative (Negative); Clarity,Urine Clear (Clear); Color,Urine Yellow (Yellow); Glucose,Urine (UA) Normal (Normal); Ketones,Urine Negative (Negative); Leukocyte Esterase,Urine Negative (Negative); Nitrite,Urine Negative (Negative); PH,Urine 6.5 pH Units (5.0-8.0); Protein,Urine Negative (Neg-Trace); Specific Gravity,Urine 1.024 (1.010-1.025); Urobilinogen,Urine Normal (Normal)
[2019-11-14 14:40] LABS: Amphetamine Screen,Urine Negative ng/mL (Cutoff=1000); Barbiturate Screen,Urine Negative ng/mL (Cutoff=200); Benzodiazepines Screen,Urine Negative ng/mL (Cutoff=200); Cannabinoid Screen,Urine Negative ng/mL (Cutoff = 50); Cocaine Screen,Urine Negative ng/mL (Cutoff= 300); Opiate Screen,Urine Negative ng/mL (Cutoff=300); Phencyclidine Screen,Urine Negative ng/mL (Cutoff=25)
[2019-11-14] MEDS: hydrOXYzine pamoate 25 MG CAPSULE PO PRN (16:17)
[2019-11-14] MEDS: *HR* LORazepam 2 MG/ML VIAL IVP PRN (17:08)
[2019-11-14] MEDS: *HR* Enoxaparin 80 MG/0.8 ML SYRINGE SQ SCH (20:15)
[2019-11-15] MEDS: *HR* LORazepam 2 MG/ML VIAL IVP PRN ×2 (00:26→09:20)
[2019-11-15] MEDS ORDERED: Morphine Sulfate 2 MG/ML SYRINGE IVP ONE (00:34)
[2019-11-15 04:37] LABS: Hematocrit 34.2 % (35.3-44.9); Immature Granulocytes % 0.3 % (0-4); Mean Corpuscular HGB Conc 33.6 g/dL (31.6-35.5); Mean Corpuscular Hemoglobin 30.7 pg (28.0-33.3); Mean Corpuscular Volume 91.2 fL (83.0-100.0); Mean Platelet Volume 9.6 fL (9.4-12.4); Platelet Count 255 K/mcL (140-400); Red Blood Count 3.75 M/mcL (3.82-4.97); Red Cell Distribution Width 14.1 % (11.5-14.5); Segmented Neutrophils % 53.7 %; White Blood Count 7.8 K/mcL (4.3-11.1)
[2019-11-15 04:38] LABS: Basophils % 0.5 %; Eosinophils # 0.2 K/mcL (0.0-0.6); Lymphocytes # 2.7 K/mcL (0.6-4.6); Monocytes # 0.6 K/mcL (0.0-1.3); Monocytes % 7.5 %; Neutrophils # 4.2 K/mcL (1.6-8.9)
[2019-11-15 04:39] LABS: Hemoglobin 11.5 g/dL (11.5-15.4)
[2019-11-15 04:58] LABS: BUN/Creatinine Ratio 23 (6-26); Blood Urea Nitrogen 16 mg/dL (6-20); Calcium 8.4 mg/dL (8.6-10.3); Carbon Dioxide 25 mEq/L (23-29); Chloride 109 mEq/L (98-107); Cholesterol 155 mg/dL (< 200); Glucose 93 mg/dL (70-105); HDL Cholesterol 52 mg/dL (40-59); LDL Cholesterol,Calculated 91 mg/dL (0-99); Magnesium 1.9 mg/dL (1.6-2.6); Osmolality,Calculated 287 (280-300); Potassium 3.7 mEq/L (3.5-5.1); Sodium 138 mEq/L (136-145); Triglycerides 61 mg/dL (< 150); eGFR For African Americans > 60 (> 60); eGFR For Non-African Americans > 60 (> 60)
[2019-11-15] MEDS: *HR* OxyCODONE/APAP 5/325 TABLET PO PRN ×3 (05:09→15:49)
[2019-11-15] MEDS: Pregabalin 50 MG CAPSULE PO SCH (07:49)
[2019-11-15] MEDS: OXcarbazepine 150 MG TABLET PO SCH (07:49)
[2019-11-15] MEDS: Nicotine 21 MG PATCH.TD24 TD SCH (07:49)
[2019-11-15] MEDS: *HR* Enoxaparin 80 MG/0.8 ML SYRINGE SQ SCH (07:50)
[2019-11-15] MEDS ORDERED: Azithromycin 500 MG in 0.9 % Sodium Chloride 250 ML IVPB SCH (09:00)
[2019-11-15] MEDS ORDERED: cefTRIAXone 1,000 MG in 0.9 % Sodium Chloride Mini Bag 100 ML IVPB SCH (09:00)
[2019-11-15] MEDS: hydrOXYzine pamoate 25 MG CAPSULE PO PRN ×2 (09:20→15:49)
[2019-11-15 15:55] VITALS: BP 131/76
[2019-11-15] MEDS ORDERED: *HR* LORazepam 1 MG TABLET PO PRN (15:58)
[2019-11-18 17:46] LABS: APTT (LE Anticoag) 42 sec (32-48); Diluted Russell Viper Venom 31 sec (33-44); PT (LE-Anticoag) 11.9 sec (12.0-15.5)
[2019-11-19 10:37] LABS: FACV Specimen WHOLE BLOOD
[2019-11-19 13:37] LABS: Fac V Leiden R506Q Mut Result NEGATIVE
[2019-11-21 14:12] LABS: Prothrombin G20210A Specimen WHOLE BLOOD
[2019-11-21 15:11] LABS: Prothrombin G20210A Mut Result NEGATIVE
== END 2019-11-15 19:17 | disposition home or self-care (01) ==
LOC: CDU 06:16 → EMEROOARM 06:16 → CDU 11:05 → 3BNU 16:54
PROVIDERS: ADMIT Internal Medicine; ATTEND Internal Medicine

== ENCOUNTER 2022-02-12 12:28 | Inpatient (IN) ==
[2022-02-12] MEDS ORDERED: 0.9 % Sodium Chloride 1,000 ML IVC ONE ×2 (12:39→14:35)
[2022-02-12 12:53] LABS: ABG Base Excess 0 mEq/L (-2 to 3); ABG HCO3 25 mEq/L (21-27); ABG Oxygen Saturation 92 % (95-98); ABG PCO2 43 mmHg (35-45); ABG PH 7.37 pH Units (7.32-7.45); ABG PO2 65 mmHg (85-104); ABG TCO2 27 mEq/L (20-26)
[2022-02-12 13:00] LABS: Basophils % 0.3 %; Eosinophils # 0.2 K/mcL (0.0-0.6); Eosinophils % 2.1 %; Hematocrit 40.5 % (35.3-44.9); Hemoglobin 13.1 g/dL (11.5-15.4); Immature Granulocytes % 0.4 % (0-4); Lymphocytes # 3.4 K/mcL (0.6-4.6); Lymphocytes % 31.7 %; Mean Corpuscular HGB Conc 32.3 g/dL (31.6-35.5); Mean Corpuscular Hemoglobin 31.2 pg (28.0-33.3); Mean Corpuscular Volume 96.4 fL (83.0-100.0); Mean Platelet Volume 9.7 fL (9.4-12.4); Monocytes % 8.8 %; Neutrophils # 6.1 K/mcL (1.6-8.9); Platelet Count 322 K/mcL (140-400); Red Cell Distribution Width 13.6 % (11.5-14.5); Segmented Neutrophils % 56.7 %; White Blood Count 10.8 K/mcL (4.3-11.1)
[2022-02-12 13:22] LABS: Acetaminophen < 10 mcg/mL (10-20); Alanine Aminotransferase 12 Units/L (7-52); Albumin 4.2 g/dL (3.5-5.7); Albumin/Globulin Ratio 1.8 (1.1-2.2); Alkaline Phosphatase 35 Units/L (34-104); Aspartate Amino Transferase 17 Units/L (13-39); BUN/Creatinine Ratio 20 (6-26); Bilirubin,Indirect 0.3 mg/dL (0.0-1.0); Bilirubin,Total 0.3 mg/dL (0.3-1.0); Blood Urea Nitrogen 19 mg/dL (6-20); Calcium 9.5 mg/dL (8.6-10.3); Carbon Dioxide 26 mEq/L (23-29); Chloride 107 mEq/L (98-107); Creatine Kinase 94 Units/L (30-223); Ethanol < 10 mg/dL (Less than 10); Globulin 2.4 g/dL (2.4-3.5); Glucose 109 mg/dL (70-105); Osmolality,Calculated 293 (280-300); Potassium 4.1 mEq/L (3.5-5.1); Salicylate < 2.5 mg/dL (15.0-30.0); Sodium 140 mEq/L (136-145); Total Protein 6.6 g/dL (6.4-8.9); eGFR For African Americans > 60 (> 60); eGFR For Non-African Americans > 60 (> 60)
[2022-02-12] MEDS ORDERED: 0.9 % Sodium Chloride 1,000 ML ONE (13:34)
[2022-02-12] MEDS: 0.9 % Sodium Chloride 1,000 ML IVC SCH ×2 (13:38→14:00)
[2022-02-12 13:42] LABS: Bilirubin,Urine Negative (Negative); Blood,Urine Negative (Negative); Clarity,Urine Slightly Cloudy (Clear); Color,Urine Yellow (Yellow); Glucose,Urine (UA) Normal (Normal); Ketones,Urine Negative (Negative); Leukocyte Esterase,Urine Negative (Negative); Nitrite,Urine Negative (Negative); Protein,Urine >=300 mg/dL (Neg-Trace); Specific Gravity,Urine >= 1.030 (1.010-1.025); Urobilinogen,Urine Normal (Normal)
[2022-02-12 13:45] LABS: Squamous Epithelial Cell,Urine Many per hpf (None-Few)
[2022-02-12 13:47] LABS: Amorphous Sediment,Urine Few per hpf (None-Few); WBC,Urine 0-3 per hpf (0-3)
[2022-02-12 13:48] LABS: Bacteria,Urine Few per hpf (None-Few)
[2022-02-12 15:04] LABS: Amphetamine Screen,Urine Positive ng/mL (Cutoff=1000); Barbiturate Screen,Urine Negative ng/mL (Cutoff=200); Benzodiazepines Screen,Urine Positive ng/mL (Cutoff=200); Cannabinoid Screen,Urine Negative ng/mL (Cutoff = 50); Cocaine Screen,Urine Negative ng/mL (Cutoff= 300); Opiate Screen,Urine Negative ng/mL (Cutoff=300); Phencyclidine Screen,Urine Negative ng/mL (Cutoff=25)
[2022-02-12 15:14] LABS: Procalcitonin < 0.02 ng/mL (0.00-0.15)
[2022-02-12] MEDS ORDERED: Ondansetron ODT 4 MG TAB.RAPDIS SL PRN (16:47)
[2022-02-12] MEDS ORDERED: Naloxone 0.4 MG/ML INJ IVP PRN (16:47)
[2022-02-12 17:36] VITALS: PULSE 66; TEMP 97; O2SAT 96
[2022-02-12] MEDS ORDERED: Ringers Solution, Lactated 1,000 ML IVC ONE (18:29)
[2022-02-12 18:49] VITALS: BP 78/54
[2022-02-12 18:52] LABS: Lithium 0.4 mEq/L (0.6-1.2)
[2022-02-12 18:54] LABS: Prothrombin Time 10.6 Seconds (9.4-12.1)
[2022-02-12 19:09] LABS: Thyroid Stimulating Hormone 5.311 mcIU/mL (0.340-5.600)
[2022-02-12] MEDS ORDERED: Albumin 25% 25gram/100mL 25 GM/100 ML IV.SOLN IVPB SCH (19:51)
[2022-02-12] MEDS ORDERED: Ringers Solution, Lactated 1,000 ML IVC SCH (20:15)
[2022-02-12] MEDS ORDERED: Lithium Carbonate ER 300 MG TABLET.ER PO SCH (21:00)
[2022-02-12] MEDS ORDERED: Divalproex (12 HR) 500 MG TABLET PO SCH (21:00)
[2022-02-12] MEDS ORDERED: Gabapentin 400 MG CAPSULE PO SCH (21:00)
[2022-02-12] MEDS ORDERED: QUEtiapine Fumarate 25 MG TABLET PO SCH (21:00)
[2022-02-13] MEDS ORDERED: Lithium Carbonate ER 300 MG TABLET.ER PO SCH (08:00)
[2022-02-13] MEDS ORDERED: *HR* Rivaroxaban 10 MG TABLET PO SCH (09:00)
[2022-02-13] MEDS ORDERED: (Brexpiprazole [Rexulti] 0.5 MG Tablet) PO SCH (09:00)
[2022-02-13] MEDS ORDERED: CARIPRAZINE HCL 4.5 MG PO SCH (09:00)
== END 2022-02-12 20:55 | disposition left against medical advice (07) | DRG 207 ==
LOC: 3BNU 12:28 → EMEROOARM 12:28 → SUATTDRO 15:13 → 2NENU 15:39
PROVIDERS: ADMIT Internal Medicine; ATTEND Student in an Organized Health Care Education/Training Program